=== PATIENT | female | born 1950 | race Caucasian/White ===

== ENCOUNTER 2023-09-14 13:42 | Emergency (ER) | payer MEDICARE, BC, SELFPAY ==
[2023-09-14 13:47] VITALS: BP 110/90
[2023-09-14 14:01] LABS: % Basophils 0.5 % (0-2); % Eosinophils 1.5 % (0-6); % Immature Granulocytes 0.8 % (0-0.5); % Lymphocytes 23.7 % (20.5-51.1); % Neutrophils 65.5 % (42.2-75.2); Absolute Basophils 0.1 10^3/uL (0-0.2); Absolute Eosinophils 0.2 10^3/uL (0-0.7); Absolute Immature Granulocytes 0.1 10^3/uL (0-0.05); Absolute Lymphocytes 2.4 10^3/uL (1.2-3.4); Absolute Monocytes 0.8 10^3/uL (0.1-0.6); Absolute Neutrophils 6.5 10^3/uL (1.4-6.5); Hematocrit 37.3 % (37.0-47.0); Hemoglobin 12.6 g/dL (12.0-16.0); Mean Corp Hgb Conc. 33.8 g/dL (33.0-37.0); Mean Corpuscular Hgb 31.3 pg (27.0-31.0); Mean Corpuscular Volume 92.8 fL (81.0-99.0); Mean Platelet Volume 9.4 fL (7.4-10.4); Nucleated Red Blood Cells % 0 %; Platelet Count 190 10^3/uL (130-400); Red Blood Cell Count 4.02 10^6/uL (4.20-5.40); Red Cell Dist. Width 13.1 % (11.5-14.5)
[2023-09-14 14:23] LABS: ALT (SGPT) 23 U/L (0-35); AST (SGOT) 24 U/L (14-36); Albumin 4.4 g/dl (3.5-5.0); Alkaline Phosphatase 54 U/L (38-126); Blood Urea Nitrogen 21 mg/dl (7-17); Calcium 10.1 mg/dl (8.4-10.2); Carbon Dioxide 27 mmol/L (22-30); Chloride 106 mmol/L (98-107); Glucose 92 mg/dl (70-99); Potassium 4.4 mmol/L (3.5-5.1); Sodium 139 mmol/L (135-145); Total Bilirubin 0.3 mg/dl (0.2-1.3); Total Protein 6.8 g/dl (6.3-8.2); eGFR 59.86
--- NOTE | 2023-09-14 15:18 | ED.GENMED ---
History of Present Illness
General
Chief Complaint: DVT/Possible Blood Clot
Source: patient
Time Seen by Provider: 09/14/23 14:44
History of Present Illness
History of Present Illness:
73-year-old female with past medical history of bipolar disorder presenting to the emergency department for evaluation of left lower extremity edema and pain that have been ongoing for at least 2 weeks, family concern for possible DVT so brought
patient to the ER further evaluation. Patient recently drove to this area from [place] to visit her daughter who lives in [place]. Patient is unsure if pain started prior to driving or afterwards. She is denying any chest pain, shortness of
breath, cough, pleurisy or any other concerns. Denies trauma to the affected left lower extremity. Denies any history of similar. Patient notes a previous history of tobacco use but notes has not used any cigarettes or tobacco in at least 15
years. No known family history of bleeding or clotting disorders.
Past History
Past History
ED Past Medical History: Psychiatric
ED Past Surgical History: Orthopedic
Social History
Tobacco: Former smoker
Alcohol: None
Drug: None
Personal:
Living: with family
Review of Systems
Review of Systems
All Other Systems: ROS reviewed and negative except as documented in HPI and ROS
Phy Exam
Physical Exam
Physical Exam:
GENERAL: Alert , in no apparent distress
EYE: conjunctiva clear
NECK: Supple, no significant adenopathy.
ENT: o/p clr, mmm.
CARDIAC: Regular rate and rhythm
LUNGS: Clear breath sounds bilaterally, no acute respiratory distress, no wheezes/rales/rhonchi
NEUROLOGICAL: Alert and oriented
SKIN: Warm and dry, skin intact.
MUSCULOSKELETAL: There is moderate nonpitting edema to the left lower extremity compared to the right. Patient has easily palpable pedal and tibial pulses bilaterally and sensation is grossly intact to light touch
PSYCH: Normal and appropriate interaction.
Scores
Heart Failure Risk
Heart Failure Risk Score: Not Applicable
Heart Score for Chest Pain Patients
STEMI patient?: Not applicable
Withdrawal Assessment of Alcohol
Withdrawal Assessment Completed?: Not applicable
Course
Orders/Labs/Results
Orders:
Orders
09/14/23 13:54
Complete Blood Count/With Diff Urgent
Comprehensive Metabolic Panel Urgent
09/14/23 14:52
US Periph Venous LOWER Ext LT Urgent
Comment:
Reason For Exam: pain
Abnormal Lab Results
09/14/23
13:54
RBC 4.02 L 10^6/uL
(4.20-5.40)
MCH 31.3 H pg
(27.0-31.0)
Abs Immat Gran (auto) 0.1 H 10^3/uL
(0-0.05)
Absolute Monos (auto) 0.8 H 10^3/uL
(0.1-0.6)
Immature Gran % 0.8 H %
(0-0.5)
BUN 21 H mg/dl
(7-17)
09/14/23 13:54
09/14/23 13:54
Vital Signs
Initial and Last Documented VS:
Initial Vital Signs
Temp Pulse Resp BP Pulse Ox
98.2 F 82 16 110/90 98
09/14/23 13:47 09/14/23 13:47 09/14/23 13:47 09/14/23 13:47 09/14/23 13:47
Last Documented Vital Signs
Temp Pulse Resp BP Pulse Ox
98.2 F 56 16 122/59 99
09/14/23 13:47 09/14/23 16:11 09/14/23 16:11 09/14/23 16:11 09/14/23 16:11
MDM/Problems Addressed
Differential Diagnosis Includes:
DVT, lymphedema, peripheral vascular/peripheral arterial disease
MDM/Problems Addressed:
73-year-old female presenting to the emergency department for evaluation of left lower extremity edema and pain that been ongoing for at least 2 weeks. Patient has a DVT risk factor including recent prolonged travel and sedentary state. Labs have
been initiated from triage and are unremarkable. Ultrasound ordered to further assess. Disposition pending.
*Radiology
Radiology exam reviewed: radiology read reviewed
*Pulse Oximetry
Patient hypoxic: no
*Critical Care Note
Total Time (30-74mins, 75-104mins- exclusive of procedures): Not Applicable
Patient Management
Escalation/DeEscalation of care consider admission/obs:
Patient US is negative for DVT. I advised she follow up with her PCP given the edema. Also advised ice and elevation of extremity. Patient and aware of return precautions to the ER
ED Attending Note
-
Portions of this chart may have been created with voice recognition software.� Occasional wrong word or��sound alike� substitutions may have occurred due to the inherent limitations of voice recognition software.
Discharge Plan
Departure
Patient Disposition: Home (Routine Discharge)
Date of Disposition: 09/14/23
Time of Disposition: 15:55
Patient with high blood pressure during this ER visit?: No
Discharge Problem:
Edema of left lower extremity
Instructions: Swelling
Referrals:
UNKNOWN - PT DOES,NOT KNOW [Family Provider] -
Interventions
Interventions:
*Risk Screen - Suicide Last Done: 09/14/23 13:47
*General Assessment Last Done: 09/14/23 16:10
*Neglect/Abuse Screening Last Done: 09/14/23 13:47
ED- Fall Risk Assessment Last Done: 09/14/23 13:47
*Nursing Disposition Last Done: 09/14/23 16:11
ED- Cardiac Assessment Last Done: 09/14/23 15:52
ED- Pulmonary Assessment Last Done: 09/14/23 15:53
ED-Skin Assessment Last Done: 09/14/23 15:52
Discharge Date and Time
Discharge Date/Time: 09/14/23 16:12
Print Language: IRAQI
[2023-09-14 16:10] VITALS: BP 122/59
[2023-09-14 16:11] VITALS: BP 122/59
== END 2023-09-14 16:12 | disposition home or self-care (01) ==
LOC: EMR 13:42
PROVIDERS: Emergency Medicine; EMERGENCY PHYSICIAN Emergency Medicine
DX: R60.0 Localized edema (principal); Z87.891 Personal history of nicotine dependence; F31.9 Bipolar disorder, unspecified
CPT/HCPCS: 99284; 80053; 85025; 93971